=== PATIENT | male | born 1955 | race Caucasian/White ===

== ENCOUNTER 2023-11-01 10:48 | Outpatient (CLI) | payer MEDICARE, SELFPAY ==
--- NOTE | ~2023-11-01 | XR_ITS ---
Clinical Indication: COPD, history of bladder cancer PA and lateral views of the chest: Comparison: 09/08/2016 Findings: The lungs are clear, without evidence of focal consolidation or pleural effusion. Probable COPD. Cardiomediastinal silhouette is mildly prominent, status post median sternotomy. Bones and soft tissues are unremarkable. Impression: No acute abnormality. Probable COPD. Reviewed, dictated and finalized at location . Impression: No acute abnormality. Probable COPD.
== END 2023-11-01 10:49 | disposition home or self-care (01) ==
LOC: CHSIMG 10:59
PROVIDERS: PCP Family Medicine; Visit Provider Urology
DX: R06.02 Shortness of breath (principal)
CPT/HCPCS: 71046